=== PATIENT | male | born 1945 | race Caucasian/White ===

== ENCOUNTER → 2018-06-09 10:53 | Outpatient (CLI) | payer MEDICARE, SELFPAY ==
[2018-06-09 12:09] LABS: PSA,Total- Diagnostic 5.34 ng/mL (0.0-4.0)
== END ==
PROVIDERS: Family Provider Internal Medicine; PCP Internal Medicine; Referring Provider Nurse Practitioner Adult Health; Visit Provider Nurse Practitioner Adult Health
DX: R97.20 Elevated prostate specific antigen [PSA] (principal)
CPT/HCPCS: 36415; 84153

== ENCOUNTER → 2018-06-27 14:38 | Outpatient (CLI) | payer MEDICARE, SELFPAY ==
[2018-06-27 13:22] VITALS: BMI 31.0
--- NOTE | 2018-06-27 14:43 | RAD_ITS ---
STUDY: X-RAY CHEST REASON FOR EXAM: Male, 72 years old. Shortness of breath TECHNIQUE: PA and lateral views of the chest COMPARISON: None. FINDINGS: Post CABG changes are present. Right base atelectasis and/or small infiltrate present. There are no pleural effusions. There is no pneumothorax. The heart is normal in size. The visualized osseous structures are within normal limits. RAD/Chest PA and Lateral IMPRESSION: There is right base atelectasis and/or small infiltrate. Electronically Signed: Héctor Coffman, at 20:58 EDT Tel , Service support ,
== END ==
PROVIDERS: Family Provider Internal Medicine; PCP Internal Medicine; Referring Provider Internal Medicine Critical Care Medicine; Visit Provider Internal Medicine Critical Care Medicine
DX: R06.09 Other forms of dyspnea (principal)
CPT/HCPCS: 71046

== ENCOUNTER → 2018-09-20 07:39 | Outpatient (CLI) | payer MEDICARE, SELFPAY ==
[2018-06-27 13:22] VITALS: BMI 31.0
--- NOTE | 2018-09-20 12:58 | PFTCOMP_ITS ---
COMPLETE PULMONARY FUNCTION TEST INTERPRETATION Brief HPI: Patient is a 72 year old male, currently under the care of myself, who presents to [facility] for complete pulmonary function tests secondary to diagnosis of dyspnea. Respiratory therapist reports good effort and reproducible results. Interpretation: Forced expiration spirometry shows no large airways obstructive ventilatory defect with an FEV1 of 104% predicted. There is no significant bronchodilator response by strict ATS criteria. Spirograms are of good quality and plateau normally. The respiratory flow volume loop shows a normal pattern. Lung volumes by body plethysmography show a normal total lung capacity at 5.65 L, 98% predicted. All other lung volumes are within normal limits. Diffusion capacity by carbon monoxide is normal at 93% predicted. The airway resistance is elevated. No previous pulmonary function tests were available for review. Impression: These pulmonary function tests are within normal limits.
== END ==
PROVIDERS: Family Provider Internal Medicine; PCP Internal Medicine; Referring Provider Internal Medicine Critical Care Medicine; Visit Provider Internal Medicine Critical Care Medicine
DX: R06.09 Other forms of dyspnea (principal); K44.9 Diaphragmatic hernia without obstruction or gangrene
CPT/HCPCS: 94060; 94726; 94729

== ENCOUNTER → 2018-09-23 10:35 | Outpatient (CLI) | payer MEDICARE, SELFPAY ==
[2018-06-27 13:22] VITALS: BMI 31.0
[2018-09-23 11:12] VITALS: PULSE 72; PULSE 76; PULSE 80; PULSE 84; PULSE 85; PULSE 88; PULSE 92; PULSE 95; O2SAT 92; O2SAT 93; O2SAT 95; O2SAT 96
--- NOTE | 2018-09-23 12:30 | PCM.PSN.6M ---
PSN 6 Minute Walk Test - 6 Minute Walk Test 6 Minute Walk Test: 6 Minute Walk Test PSN:6-Minute Walk Test Start: 09/23/18 11:11 Freq: Status: Active Protocol: RESP.6MINW Document 09/23/18 11:12 HILARY (Rec: 09/23/18 11:14 HILARY [id number]) 6 Minute Walk Test Date Performed 09/23/18 Time Performed 11:00 Height 5 ft 7 in Weight: 81.647 kg Weight in Pounds 180.[address]: Davey Arauz Assistive device used: None Pre-test Oxygen Delivery Method Room Air Pulse Ox (%) 93 Pulse Rate (60-100 beats/min) 72 Dyspnea Bessie Scale (0-10) 0 Exertion Bessie Scale (6-20) 6 1st minute Oxygen Delivery Method Room Air Pulse Ox (%) 95 Pulse Rate (60-100 beats/min) 80 2nd minute Oxygen Delivery Method Room Air Pulse Ox (%) 93 Pulse Rate (60-100 beats/min) 84 3rd minute Oxygen Delivery Method Room Air Pulse Ox (%) 92 Pulse Rate (60-100 beats/min) 85 4th minute Oxygen Delivery Method Room Air Pulse Ox (%) 96 Pulse Rate (60-100 beats/min) 88 5th minute Oxygen Delivery Method Room Air Pulse Ox (%) 95 Pulse Rate (60-100 beats/min) 92 6th minute Oxygen Delivery Method Room Air Pulse Ox (%) 95 Pulse Rate (60-100 beats/min) 95 Dyspnea Bessie Scale (0-10) 3 Exertion Bessie Scale (6-20) 13 Post-test Oxygen Delivery Method Room Air Pulse Ox (%) 96 Pulse Rate (60-100 beats/min) 76 Full Laps Walked 17 Partial Lap, Number of Tiles Walked 50 Total Distance Walked (ft) 1053 - Interpretation Interpretation: The patient was able to ambulate 1053 feet over the course of 6 minutes on room air with no assistive devices or breaks. The patient was noted to have a decreased baseline saturation of 93%, but no tachycardia or desaturations were noted during testing. These findings are consistent with a normal exercise oximetry. - Recommendations Recommendations: No supplemental oxygen is indicated at this time.
== END ==
PROVIDERS: Family Provider Internal Medicine; PCP Internal Medicine; Referring Provider Internal Medicine Critical Care Medicine; Visit Provider Internal Medicine Critical Care Medicine
DX: K44.9 Diaphragmatic hernia without obstruction or gangrene (principal); R06.09 Other forms of dyspnea
CPT/HCPCS: 94618

== ENCOUNTER → 2019-09-12 15:42 | Outpatient (CLI) | payer MEDICARE, SELFPAY ==
[2018-10-10 13:00] VITALS: BMI 29.0
--- NOTE | 2019-09-12 | PROSBIL_PTH ---
PATIENT: HENRY PRATHER [facility] U#:[id number] AGE/SX: 79/M ROOM: RE09/12/[address]: Dr. Naseem Arreola MD : 1945 BED: DIS: SPEC #: [id number] RECD: 09/12/19 15:37 STATUS: JUNITO MIKE #: [id number] DIOGO: 09/12/19 00:[address]: Naseem Arreola DEPT: SURGICAL PATHOLOGY RECD BY: Darwin Ferrera ENTERED: 09/13/19 12:09 SP TYPE: PROST BX TIM DR: Dr. Mavis Carrera MD Tissues: A - PROSTATE RIGHT B - PROSTATE RIGHT C - PROSTATE RIGHT D - PROSTATE LEFT E - PROSTATE LEFT F - PROSTATE LEFT Procedures: PROSTATE BX HEADER OPERATION: Prostate biopsy PRE-OP DIAGNOSIS: Elevated PSA TISSUE SUBMITTED: A - Right apex, B - Right mid, C - Right base, D - Left apex, E - Left mid, F - Left base MICROSCOPIC DIAGNOSIS A. Right prostate, apex, core biopsy: Prostatic tissue, negative for malignancy. B. Right prostate, mid, core biopsy: Prostatic tissue, negative for malignancy. C. Right prostate, base, core biopsy: Prostatic tissue, negative for malignancy. D. Left prostate, apex, core biopsy: Prostatic tissue, negative for malignancy. E. Left prostate, mid, core biopsy: Prostatic tissue, negative for malignancy. Focal mild chronic inflammation. F. Left prostate, base, core biopsy: Prostatic tissue, negative for malignancy. SJ:xu 09/14/19 MICROSCOPIC DESCRIPTION Slides are reviewed. GROSS DESCRIPTION A - Received is one container designated prostate, right apex. The specimen consists of one elongated fragment of light orta-white soft tissue measuring 1.5 cm in length and 0.1 cm in diameter. The specimen is totally submitted in one cassette. B - Received is one container designated prostate, right mid. The specimen consists of two elongated fragments of light orta-white soft tissue each measuring 1 cm in length and 0.1 cm in diameter. The specimen is totally submitted in one cassette. C - Received is one container designated prostate, right base. The specimen consists of two elongated fragments of light orta-white soft tissue each measuring 1 cm in length and 0.1 cm in diameter. The specimen is totally submitted in one cassette. D - Received is one container designated prostate, left apex. The specimen consists of one elongated fragment of light orta-white soft tissue measuring 1 cm in length and 0.1 cm in diameter. The specimen is totally submitted in one cassette. E - Received is one container designated prostate, left mid. The specimen consists of two elongated fragments of light orta-white soft tissue each measuring 1 cm in length and 0.1 cm in diameter. The specimen is totally submitted in one cassette. F - Received is one container designated prostate, left base. The specimen consists of two elongated fragments of light orta-white soft tissue each measuring 1 cm in length and 0.1 cm in diameter. The specimen is totally submitted in one cassette. / AM:xu 09/13/19 TC:3 CPT: G0146
== END ==
PROVIDERS: PCP Internal Medicine; Referring Provider Urology; Visit Provider Urology
DX: R97.20 Elevated prostate specific antigen [PSA] (principal)
CPT/HCPCS: 88305; G0416

== ENCOUNTER → 2022-02-02 | Outpatient (CLI) | payer MEDICARE, SELFPAY ==
--- NOTE | 2022-02-02 13:33 | PFTCOMP ---
COMPLETE PULMONARY FUNCTION TEST INTERPRETATION Brief HPI: Patient is a 76-year-old male, currently under the care of myself, who presents to [facility] for complete pulmonary function tests secondary to diagnosis of dyspnea. Respiratory therapist reports good effort and reproducible results. Interpretation: Forced expiration spirometry shows no large airways obstructive ventilatory defect with an FEV1 of 102% predicted. There is no significant bronchodilator response by strict ATS criteria. Spirograms are of good quality and plateau normally. The respiratory flow volume loop shows a normal pattern. Lung volumes by body plethysmography show a normal total lung capacity at 5.3 L, 93% predicted. All other lung volumes are within normal limits. Diffusion capacity by carbon monoxide is normal at 109% predicted. The airway resistance is normal. Compared to previous pulmonary function tests from 09/20/2018, there has been improvement in DLCO by 12%. Impression: Grossly normal pulmonary function studies with slight improvement compared to previous study in 2019
== END | disposition home or self-care (01) ==
LOC: PSN 10:15
PROVIDERS: PCP Internal Medicine; Referring Provider Internal Medicine Critical Care Medicine; Visit Provider Internal Medicine Critical Care Medicine
DX: R06.09 Other forms of dyspnea (principal)
CPT/HCPCS: 94060; 94726; 94729

== ENCOUNTER → 2022-03-23 | Outpatient (CLI) | payer MEDICARE, SELFPAY ==
--- NOTE | 2022-03-23 06:56 | MRI_ITS ---
STUDY: MR PELVIS WITH AND WITHOUT CONTRAST (PROSTATE) REASON FOR EXAM: Male, 76 years old. Elevated PSA TECHNIQUE: Standardized multiparametric prostate MRI with T1, T2, DWI/ADC sequences were obtained in 3 orthogonal planes, and dynamic contrast enhancement sequences. 17 ml of clariscan contrast material was administered intravenously for the contrast portion of the examination. COMPARISON: None. FINDINGS: The prostate volume measures 37 mm3. The contours of the prostate gland are lobulated. There is mass effect on the bladder base. The transition zone is heterogenous. PI-RADS DWI score 1 - No abnormality (normal) on ADC or high b-value DWI. PI-RADS T2W score 2 - A mostly encapsulated nodule OR a homogeneous circumscribed nodule without encapsulation (atypical nodule) or a homogeneous mildly hypointense area between nodules.. Contrast enhancement no early or contemporaneous enhancement; or diffuse multifocal enhancement NOT corresponding to a focal finding on T2W and/or DWI or focal ehancement responding to a lesion demonstrating features of BPH onT2WI (including features of extruded BPH in the PZ). The peripheral zone is homogenous. PI-RADS DWI score 2 - Linear/wedge shaped hypointense on ADC and/or linear/wedge shaped hyperintense on high b-value DWI. PI-RADS T2W score 3 - Noncircumscribed, rounded, mild hypointensity. Contrast enhancement no early or contemporaneous enhancement; or diffuse multifocal enhancement NOT corresponding to a focal finding on T2W and/or DWI or focal enhancement responding to a lesion demonstrating features of BPH onT2WI (including features of extruded BPH in the PZ). The seminal vesicles demonstrate normal margins and T2 signal pattern. No mass lesion or invasion depicted. The rectoprostatic angles are normal. Partial distention of the urinary bladder with trabeculated wall. Fat-containing left inguinal hernia. The vascular structures of the are normal. The visualized hollow viscus structures are unremarkable except for sigmoid colon diverticulitis. No bone marrow edema or mass lesion depicted. MRI/Pelvis W/WO Contrast IMPRESSION: 1. PIRADS v2.1 2019 -- 2 - Low (clinically significant cancer is unlikely). Electronically Signed: Nomi Huizar (Brooks), at 9:43 EST ,
[2022-03-23 07:36] LABS: CREATININE FINGERSTICK < 0.9 mg/dL (0.70-1.30); EGFR FINGERSTICK > 60.0000 mL/min (>60)
== END | disposition home or self-care (01) ==
LOC: MRI 06:30
PROVIDERS: PCP Internal Medicine; Referring Provider Urology; Visit Provider Urology
DX: R97.20 Elevated prostate specific antigen [PSA] (principal)
CPT/HCPCS: 72197; A9575